=== PATIENT | male | born 1990 | race African-American/Black ===

== ENCOUNTER 2017-03-18 23:31 | Emergency (ER) | payer OTHER ==
[~2017-03-18] VITALS: Ht 175.3 cm; Wt 77.1 kg
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
== END 2017-03-19 03:50 | disposition home or self-care (01) ==
LOC: CED 23:31 → CFTX 23:31 → CED 23:55 → CFTX 23:55 → CED 03-19 03:50
DX: S50.01XA Contusion of right elbow, initial encounter (principal); S20.211A Contusion of right front wall of thorax, initial encounter; V49.10XA Passenger injured in collision with unspecified motor vehicles in nontraffic accident, initial encounter; Z23 Encounter for immunization
CPT/HCPCS: 71020; 73080; 90471; 90715; 99284